=== PATIENT | female | born 1945 | race Caucasian/White ===

== ENCOUNTER 2018-08-24 13:10 | Outpatient (CLI) | payer MEDICARE, OTHER ==
[2018-08-24] MEDS ORDERED: LIDOCAINE-MPF 1%, 5ML ONE (14:22)
== END 2018-08-24 23:59 | disposition home or self-care (01) ==
LOC: RAD 13:10
PROVIDERS: ATTEND Otolaryngology
DX: E04.1 Nontoxic single thyroid nodule (principal)
CPT/HCPCS: 10005; 88112; 88173

== ENCOUNTER 2019-04-12 10:25 | Outpatient (CLI) | payer MEDICARE, OTHER | END 2019-04-12 23:59 | disposition home or self-care (01) | LOC: CFH 10:25 → EDSTATUS 11:00 → CFH 23:59 | PROVIDERS: ATTEND Nurse Practitioner Family | DX: Z12.31 Encounter for screening mammogram for malignant neoplasm of breast (principal); N64.89 Other specified disorders of breast; M81.0 Age-related osteoporosis without current pathological fracture | CPT/HCPCS: 77063; 77067; 77080 ==

== ENCOUNTER 2020-11-25 12:09 | Outpatient (CLI) | payer MEDICARE, OTHER ==
[2020-11-25] MEDS ORDERED: LIDOCAINE 1%, 10ML ONE (12:52)
== END 2020-11-25 23:59 | disposition home or self-care (01) ==
LOC: RAD 12:09
PROVIDERS: ATTEND Nurse Practitioner Family
DX: Z02.9 Encounter for administrative examinations, unspecified (principal)